=== PATIENT | female | born 1995 | race Two or more races ===

== ENCOUNTER 2023-04-09 15:25 | Outpatient (AMB) | payer OTHER, SELFPAY ==
[2023-04-09 15:37] VITALS: BP 108/70; PULSE 70; TEMP 36.6; O2SAT 98; BMI 36.3
--- NOTE | 2023-04-09 15:37 | AM.OFFWIN_ITS ---
Intake Vital Signs 04/09/23 15:37 Height 5 ft 2 in Weight 198 lb 4 oz BMI 36.3 BP 108/70 Blood Pressure Location Lt brachial Position Sitting Pulse 70 Pulse Source Pulse Oximeter Temp 97.8 F Temp Source Temporal Artery Scan Pulse Oximetry (%) 98 Oxygen Delivery Method Room Air Intake Visit Reasons: [employer], Left ankle pain Intake Note: pt is here for left ankle possible sprain Patient Tobacco Use Status: Never used Tobacco Allergies latex Allergy (Mild, Verified 04/09/23 16:26) Hives Medication List - Last Reconciled 04/09/23 by Salvatore Will MD albuterol sulfate 90 mcg/actuation (Ventolin HFA) 2 puffs inhalation Q4-6H PRN etonogestrel-ethinyl estradiol 0.12-0.015 mg/24 hr vag rings vaginal Do you need a note to return to daycare/school/sports/work: Yes HPI [employer], Left ankle pain HPI Details 27-year-old female presents to the [facility] for a sick visit. Patient twisted her ankle this afternoon while walking. She is reporting pain and swelling in ankle. PFS Social History Patient Tobacco Use Status: Never used Tobacco Physical Exam Vital Signs: Last Vital Signs Temp 97.8 F 04/09/23 15:37 Pulse 70 04/09/23 15:37 BP 108/70 04/09/23 15:37 Pulse Ox 98 04/09/23 15:37 Oxygen Delivery Method Room Air 04/09/23 15:37 BMI result Body Mass Index 36.3 Extrem Other: Left ankle: Swelling over the lateral malleolus. Pain on flexion of the foot. Assessment & Plan Assessment & Plan (1) Sprain of left ankle: Code(s): S93.402A - Sprain of unspecified ligament of left ankle, initial encounter Plan: X-ray images personally reviewed by me. Reassurance. If symptoms do not improve to follow-up here. Orders: Orders XR ankle LT min 3V Today S93.402A - Sprain of unspecified ligament of left ankle , initial encounter Coding Level of Care Code Est Pt Level 4 (59649) Diagnoses Sprain of left ankle S93.402A
== END 2023-04-09 16:24 | disposition home or self-care (01) ==
LOC: HO.HMGWI 15:25
DX: S93.402A Sprain of unspecified ligament of left ankle, initial encounter (principal)
CPT/HCPCS: 99214

== ENCOUNTER 2023-04-09 16:05 | Outpatient (REF) | payer OTHER, SELFPAY ==
--- NOTE | ~2023-04-09 | XR_ITS ---
EXAMINATION: XR ANKLE, LEFT CLINICAL INFORMATION: Sprain. Pain. COMPARISON: None available. TECHNIQUE: AP, lateral, and mortise views of the left ankle. FINDINGS: Mortise intact. No fracture, dislocation or destructive lesion. Base of the fifth metatarsal is intact. XR/XR ankle LT min 3V IMPRESSION: Negative study.
== END 2023-04-09 16:06 | disposition home or self-care (01) ==
LOC: HO.HMGCX 16:05
PROVIDERS: Visit Provider Internal Medicine
DX: S93.402A Sprain of unspecified ligament of left ankle, initial encounter (principal); X58.XXXA Exposure to other specified factors, initial encounter; Y93.9 Activity, unspecified; Y92.9 Unspecified place or not applicable; Y99.9 Unspecified external cause status
CPT/HCPCS: 73610